=== PATIENT | male | born 1970 | race Asian ===

== ENCOUNTER → 2020-07-01 13:06 | Outpatient (BNVA) | payer OTHER, SELFPAY | PROVIDERS: PCP Internal Medicine; Referring Provider Internal Medicine; Visit Provider Nurse Practitioner | DX: R10.13 Epigastric pain (principal); Z86.010 Personal history of colon polyps | CPT/HCPCS: 99212 ==

== ENCOUNTER 2020-12-09 11:18 | Outpatient (REF) | payer OTHER, SELFPAY ==
[2020-12-09 12:09] LABS: MANUAL DIFF FLAG NO
[2020-12-09 12:17] LABS: Basophils Percent Auto 0.5 % (0-2); Eosinophils Absolute Auto 0.2 X10*3/uL (0.0-0.4); Hematocrit 43.3 % (42-52); Hemoglobin 14.7 g/dl (14.0-18.0); Imm Gran Abs Auto 0.02 X10*3/uL (0.00-0.03); Imm Gran Pct Auto 0.4 % (0.0-0.4); Lymphocytes Absolute Auto 1.8 X10*3/uL (1.2-4.9); Lymphocytes Percent Auto 31.6 % (20-40); Mean Corpuscular HGB Conc 33.9 g/dl (31.0-36.0); Mean Corpuscular Hemoglobin 30.6 pg (27.0-33.0); Mean Platelet Volume 8.9 fL (9.4-12.4); Monocytes Absolute Auto 0.4 X10*3/uL (0.1-1.2); Monocytes Percent Auto 6.9 % (2-11); Neutrophils Absolute Auto 3.3 X10*3/uL (2.0-8.3); Neutrophils Percent Auto 57.6 % (45-73); Platelet Count 207 X10*3/uL (160-400); Red Blood Count 4.81 X10*6/uL (4.60-5.80); Red Cell Distribution Width 11.8 % (11.0-16.0); White Blood Count 5.7 X10*3/uL (4.8-10.8)
[2020-12-09 12:28] LABS: Glucose Urine UA NEG (NEG); Leukocyte Esterase Urine NEG (NEG); Nitrite Urine NEG (NEG); PH 7.5 (5.0-8.0); Urine Blood NEG (NEG); Urine Ketones NEG (NEG); Urine Protein NEG (NEG-TRACE)
[2020-12-09 12:30] LABS: Appearance Urine CLEAR; Color Urine YELLOW
[2020-12-09 18:21] LABS: Prostate Specific Antigen Scr 0.73 ng/mL (<0.05-4.0); TSH reflex Free T4 1.02 uIU/mL (0.32-4.0)
[2020-12-09 18:27] LABS: Alanine Aminotransferase 35 U/L (0-40); Albumin Level 4.1 g/dL (3.5-5.0); Alkaline Phosphatase 79 U/L (39-117); Anion Gap 9 (12-20); Aspartate Amino Transferase 18 U/L (5-37); Bilirubin Total 0.4 mg/dL (0.0-1.0); Blood Urea Nitrogen 16 mg/dL (9-16); Calcium 8.6 mg/dL (8.4-10.2); Carbon Dioxide 31 mmol/L (22-29); Chloride 108 mmol/L (96-108); Cholesterol 212 mg/dL; Estimated Glomerular Filt Rate > 60; Glucose Fasting 96 mg/dL (60-99); HDL Cholesterol 36 mg/dL; LDL Cholesterol Calculated 149 mg/dl; Potassium 3.7 mmol/L (3.3-5.1); Sodium 144 mmol/L (135-145); Total Protein 6.8 g/dL (6.5-8.0); Triglycerides 139 mg/dL
[2020-12-10 04:39] LABS: SARS COV2 IgG Negative (Negative)
== END 2020-12-09 11:19 | disposition home or self-care (01) ==
LOC: HO.LAB 11:18
PROVIDERS: PCP Internal Medicine; Visit Provider Internal Medicine
DX: Z00.00 Encounter for general adult medical examination without abnormal findings (principal); I10 Essential (primary) hypertension; E78.00 Pure hypercholesterolemia, unspecified; T50.Z95A Adverse effect of other vaccines and biological substances, initial encounter; Z12.5 Encounter for screening for malignant neoplasm of prostate
CPT/HCPCS: 36415; 80053; 80061; 81003; 84153; 84443; 85025; 86769

== ENCOUNTER 2021-12-22 11:22 | Outpatient (REF) | payer OTHER, SELFPAY ==
[2021-12-22 11:42] LABS: MANUAL DIFF FLAG NO
[2021-12-22 12:03] LABS: Basophils Percent Auto 0.6 % (0-2); Eosinophils Absolute Auto 0.1 X10*3/uL (0.0-0.4); Eosinophils Percent Auto 2.4 % (0-4); Hematocrit 42.6 % (42.0-52.0); Imm Gran Abs Auto 0.02 X10*3/uL (0.00-0.03); Imm Gran Pct Auto 0.4 % (0.0-0.4); Lymphocytes Absolute Auto 1.7 X10*3/uL (1.2-4.9); Lymphocytes Percent Auto 34.3 % (20-40); Mean Corpuscular HGB Conc 35.2 g/dl (31.0-36.0); Mean Corpuscular Hemoglobin 31.3 pg (27.0-33.0); Mean Corpuscular Volume 88.9 fL (80.0-98.0); Mean Platelet Volume 9.1 fL (9.4-12.4); Monocytes Absolute Auto 0.3 X10*3/uL (0.1-1.2); Monocytes Percent Auto 6.8 % (2-11); Neutrophils Absolute Auto 2.8 x10*3/uL (2.0-8.3); Neutrophils Percent Auto 55.5 % (45-73); Platelet Count 203 X10*3/uL (160-400); Red Blood Count 4.79 X10*6/uL (4.60-5.80); Red Cell Distribution Width 11.9 % (11.0-16.0)
[2021-12-22 12:28] LABS: Alanine Aminotransferase 33 U/L (0-40); Alkaline Phosphatase 77 U/L (39-117); Anion Gap 10 (12-20); Aspartate Amino Transferase 19 U/L (5-37); Bilirubin Total 0.7 mg/dL (0.0-1.0); Blood Urea Nitrogen 17 mg/dL (9-16); Calcium 8.7 mg/dL (8.4-10.2); Carbon Dioxide 29 mmol/L (22-29); Chloride 106 mmol/L (96-108); Cholesterol 225 mg/dL; Estimated Glomerular Filt Rate > 60; Glucose Fasting 93 mg/dL (60-99); HDL Cholesterol 36 mg/dL; LDL Cholesterol Calculated 164 mg/dl; Potassium 3.7 mmol/L (3.3-5.1); Sodium 141 mmol/L (135-145); Total Protein 6.7 g/dL (6.5-8.0); Triglycerides 127 mg/dL
[2021-12-22 12:53] LABS: Prostate Specific Antigen Scr 0.62 ng/mL (<0.05-4.0); TSH reflex Free T4 1.39 uIU/mL (0.32-4.0); Vitamin D 25-OH Total 48.7 ng/mL (>30)
[2021-12-22 14:12] LABS: Appearance Urine CLOUDY; Color Urine YELLOW; Glucose Urine UA NEG (NEG); Leukocyte Esterase Urine NEG (NEG); Nitrite Urine NEG (NEG); Specific Gravity - Urine 1.015 (1.005-1.025); Urine Blood NEG (NEG); Urine Ketones NEG (NEG); Urine Protein NEG (NEG-TRACE)
== END 2021-12-22 11:23 | disposition home or self-care (01) ==
LOC: HO.LAB 11:22
PROVIDERS: PCP Internal Medicine; Visit Provider Internal Medicine
DX: Z00.00 Encounter for general adult medical examination without abnormal findings (principal); E55.9 Vitamin D deficiency, unspecified; E78.00 Pure hypercholesterolemia, unspecified; I10 Essential (primary) hypertension; Z12.5 Encounter for screening for malignant neoplasm of prostate
CPT/HCPCS: 36415; 80053; 80061; 81003; 82306; 84153; 84443; 85025

== ENCOUNTER → 2022-06-07 15:24 | Outpatient (BNVA) | payer OTHER, SELFPAY | PROVIDERS: PCP Internal Medicine; Visit Provider Nurse Practitioner | DX: Z01.818 Encounter for other preprocedural examination (principal); R10.13 Epigastric pain; Z86.010 Personal history of colon polyps | CPT/HCPCS: 99212 ==

== ENCOUNTER 2022-11-17 11:49 | Outpatient (REF) | payer OTHER, SELFPAY ==
[2022-11-17 12:10] LABS: MANUAL DIFF FLAG NO
[2022-11-17 13:27] LABS: Basophils Absolute Auto 0.1 X10*3/uL (0.0-0.2); Eosinophils Absolute Auto 0.1 X10*3/uL (0.0-0.4); Eosinophils Percent Auto 2.4 % (0-4); Hematocrit 42.7 % (42.0-52.0); Hemoglobin 15.1 g/dl (14.0-18.0); Imm Gran Abs Auto 0.02 X10*3/uL (0.00-0.03); Imm Gran Pct Auto 0.4 % (0.0-0.4); Lymphocytes Absolute Auto 1.8 X10*3/uL (1.2-4.9); Mean Corpuscular HGB Conc 35.4 g/dl (31.0-36.0); Mean Corpuscular Hemoglobin 31.2 pg (27.0-33.0); Mean Corpuscular Volume 88.2 fL (80.0-98.0); Mean Platelet Volume 9.3 fL (9.4-12.4); Monocytes Absolute Auto 0.3 X10*3/uL (0.1-1.2); Monocytes Percent Auto 6.5 % (2-11); Neutrophils Absolute Auto 2.8 x10*3/uL (2.0-8.3); Neutrophils Percent Auto 54.7 % (45-73); Platelet Count 216 X10*3/uL (160-400); Red Blood Count 4.84 X10*6/uL (4.60-5.80); White Blood Count 5.1 X10*3/uL (4.8-10.8)
[2022-11-17 13:40] LABS: Appearance Urine Clear; Color Urine Yellow; Glucose Urine UA Negative (Negative); Leukocyte Esterase Urine Negative (Negative); Nitrite Urine Negative (Negative); Specific Gravity - Urine 1.015 (1.005-1.025); Urine Blood Negative (Negative); Urine Ketones Negative (Negative); Urine Protein Negative (Neg-Trace)
[2022-11-17 14:22] LABS: Alanine Aminotransferase 27 U/L (0-40); Alkaline Phosphatase 90 U/L (39-117); Anion Gap 11 (12-20); Aspartate Amino Transferase 17 U/L (5-37); Bilirubin Total 0.9 mg/dL (0.0-1.0); Blood Urea Nitrogen 14 mg/dL (9-16); Calcium 8.3 mg/dL (8.4-10.2); Carbon Dioxide 28 mmol/L (22-29); Chloride 107 mmol/L (96-108); Cholesterol 244 mg/dL; Estimated Glomerular Filt Rate > 60; Glucose Fasting 88 mg/dL (60-99); HDL Cholesterol 35 mg/dL; LDL Cholesterol Calculated 184 mg/dl; Potassium 3.5 mmol/L (3.3-5.1); Sodium 142 mmol/L (135-145); Total Protein 6.5 g/dL (6.5-8.0); Triglycerides 127 mg/dL
[2022-11-17 14:27] LABS: Prostate Specific Antigen Scr 0.74 ng/mL (<0.05-4.0); TSH reflex Free T4 1.34 uIU/mL (0.32-4.0); Vitamin D 25-OH Total 27.6 ng/mL (>30)
== END 2022-11-17 11:50 | disposition home or self-care (01) ==
LOC: HO.LAB 11:49
PROVIDERS: PCP Internal Medicine; Visit Provider Internal Medicine
DX: Z00.00 Encounter for general adult medical examination without abnormal findings (principal); Z12.5 Encounter for screening for malignant neoplasm of prostate; R30.0 Dysuria; E55.9 Vitamin D deficiency, unspecified; E78.00 Pure hypercholesterolemia, unspecified
CPT/HCPCS: 36415; 80053; 80061; 81003; 82306; 84153; 84443; 85025

== ENCOUNTER → 2023-02-16 09:45 | Outpatient (BNVA) | payer OTHER, SELFPAY | PROVIDERS: PCP Internal Medicine; Visit Provider Nurse Practitioner ==

== ENCOUNTER 2023-03-02 10:47 | Day surgery (SDC) | payer OTHER, SELFPAY ==
[2023-02-28 10:21] VITALS: BMI 27.9
--- NOTE | 2023-02-28 15:15 | P.CONAN_ITS ---
Documented by User: Leticia Diego NP 02/28/23 15:15 HPI - Anesthesia Eval Consult details Narrative: 52yo M for Colonoscopy PMFSH Active Problems Active Problems: All Active Problems (Updated 02/10/23 @ 10:55 by Zaheer Cummings MD) Facial skin lesion (Acute) Lipoma of back (Acute) Pre-op examination (Acute) Colon cancer screening (Acute) Allergic rhinitis (Acute) Overweight (BMI 25.0-29.9) (Acute) Elevated blood pressure reading (Acute) Pure hypercholesterolemia (Acute) Annual physical exam (Acute) Tubular adenoma of colon (Acute) Dyspepsia (Acute) Past Medical History Medical History (Updated 03/02/23 @ 11:06 by Batsheva Rey RN) Allergic rhinitis GERD (gastroesophageal reflux disease) Overweight (BMI 25.0-29.9) Pure hypercholesterolemia Family History Family History Father Diabetes Mother High blood pressure High cholesterol Brother No problems noted. Sister No problems noted. Surgical History Surgical History Hx of colonoscopy Status post excision of lipoma (~09/26/18) Social History Social History Housing: House Alcohol intake: current Alcohol intake frequency: holidays/special occasions only Alcohol type: beer, wine, hard liquor and other Patient Tobacco Use Status: Never used Tobacco e-Cigarette/Vaping Use: Never Used Second Hand Smoke Exposure: Yes Use of substances other than those prescribed or required for medical reasons: No Are you DNR?: No Advance Directives: No Advance Directives Information Provided: Yes service: No Current occupational status: employed Cognitive needs: No Hearing needs: No Vision needs: Yes (reading glasses) Meds Allergies Allergy/AdvReac Type Severity Reaction Status Date / Time No Known Allergies Allergy Verified 03/02/23 11:07 Home Medications Medication Instructions Recorded Confirmed Last Taken Type aspirin 81 mg capsule 81 mg PO DAILY 02/16/23 03/02/23 02/27/23 History fluticasone propionate 50 1 spray intranasal DAILY 02/28/23 03/02/23 Unknown History mcg/actuation nasal spray,suspension Exam Exam Date and Time: February 28, 2023 1515 Height,Weight and Vital Signs: Height 5 ft 5.5 in Weight 77.111 kg Assessment and Plan Assessment Anesthesia Assessment: Chart Reviewed Documented by User: Reilly Godinez MD 03/02/23 11:21 [facility] Past Medical History Medical History (Updated 03/02/23 @ 11:06 by Batsheva Rey, MANISHA) Allergic rhinitis GERD (gastroesophageal reflux disease) Overweight (BMI 25.0-29.9) Pure hypercholesterolemia Family History Family History Father Diabetes Mother High blood pressure High cholesterol Brother No problems noted. Sister No problems noted. Family history of problems with anesthesia: No Surgical History Surgical History Hx of colonoscopy Status post excision of lipoma (~09/26/18) History of Problems with Anesthesia: No Social History Social History Housing: House Alcohol intake: current Alcohol intake frequency: holidays/special occasions only Alcohol type: beer, wine, hard liquor and other Patient Tobacco Use Status: Never used Tobacco e-Cigarette/Vaping Use: Never Used Second Hand Smoke Exposure: Yes Use of substances other than those prescribed or required for medical reasons: No Are you DNR?: No Advance Directives: No Advance Directives Information Provided: Yes service: No Current occupational status: employed Cognitive needs: No Hearing needs: No Vision needs: Yes (reading glasses) Meds Allergies Allergy/AdvReac Type Severity Reaction Status Date / Time No Known Allergies Allergy Verified 03/02/23 11:07 Home Medications Medication Instructions Recorded Confirmed Last Taken Type aspirin 81 mg capsule 81 mg PO DAILY 02/16/23 03/02/23 02/27/23 History fluticasone propionate 50 1 spray intranasal DAILY 02/28/23 03/02/23 Unknown History mcg/actuation nasal spray,suspension Exam Airway Mallampati Class: II TM Dist: >3cm Neck ROM: Full Loose/Missing/Broken Teeth: Yes and Upper (L rear) Heart: ok Lungs: ok Assessment and Plan Assessment Anesthesia Assessment: Anesthesia Plan Discussed Final Anesthetic Review Family History of Problems with Anesthesia: No History of Problems with Anesthesia: No NPO: Yes ASA Class: II Final Preanesthetic Review: No Changes in Pt Med Stat, Meds/Allgs Chart Reviewed, Consent Obtained/Reviewed and Anes Risks/Benef Reviewed Patient Risk: Low Procedure Risk: Low Anesthetic Plan Anesthetic Plan: GA and Agree w/ Assess. and Plan Disposition: Standard PACU
--- NOTE | 2023-03-02 11:14 | P.HPSUR_ITS ---
Pre-Procedural Eval Section A Date of Service: 03/02/23 Section B Chief Complaint: Benign neoplasm of colon, unspecified Relevant Family History (Specify if Yes): No Relevant Social History: None Present Medications: see Short Stay Collaborative assessment Medical History: Significant History (Allergic rhinitis GERD (gastroesophageal reflux disease) Overweight (BMI 25.0-29.9) Pure hypercholesterolemia) History of Previous Operations: Relevant previous surgery/procedure and date(s) (Hx of colonoscopy Status post excision of lipoma (~09/26/18)) Allergies: Allergies Allergy/AdvReac Type Severity Reaction Status Date / Time No Known Allergies Allergy Verified 03/02/23 11:07 Review of Systems Sugical H&P ROS: Negative: Constitution, Cardiovascular, Respiratory, Neurological, Psychiatric, Hem-Onc, Allergic/Immunologic, Gastrointestinal, Genitourinary, Musculoskeletal, Integumentary, Endocrine and Eyes/Ears/Nose/Throat Exam Surgical H&P Exam: Normal: HEENT, Normal: Heart, Normal: Lungs, Normal: Extremi ties, Normal: Abdomen, Normal: Skin and Normal: Neurological Plan Diagnosis/Plan: Unchanged I have reviewed the history and physical and performed a pertinent physical examination on my patient. No changes have occurred unless specified. Time Spent With Patient Time: Total time managing care of this patient today ____ minutes.
--- NOTE | 2023-03-02 11:21 | W.PM.OPN ---
Operative Note Operative Note Date of Service: 03/02/23 Narrative: Operative Information Procedure Description: Colonoscopy Indication: hx of polyps Anesthesia: MAC COLONOSCOPY Instrument: Olympus variable stiffness pediatric scope 190L Colonoscopy Monitoring: Vital signs and clinical assessment, continuous EKG monitoring, Pulse oximetry, Carbon Dioxide monitoring and blood pressure monitoring were done throughout the procedure. Colon withdrawal time was 7 minutes. Procedure: The patient was placed in the left lateral decubitis position and pre-procedure medications were administered. After a digital rectal examination of the ano-rectum, the video colonoscope was inserted into the rectum and advanced through the colon to the cecum/TI. The colonoscope was slowly withdrawn in a retrograde panoramic fashion and the colon mucosa was carefully examined including a retroflexed view of the rectum. Findings and interventions are described below. Procedure Difficulty: moderate Findings: Terminal Ileum-not intubated Cecum:normal Ascending Colon: normal Transverse Colon -normal Descending Colon:normal Sigmoid Colon: normal Rectum: Retroflexion with small internal hemorrhoids, grade I Anorectum - normal Colon preparation: Midnight Bowel Preparation Scale Right colon; 2 Transverse colon: 1-2 Left colon; 1-2 (0 = Unprepared colon segment with mucosa not seen due to solid stool that cannot be cleared. 1 = Portion of mucosa of the colon segment seen, but other areas of the colon segment not well seen due to staining, residual stool and/or opaque liquid. 2 = Minor amount of residual staining, small fragments of stool and/or opaque liquid, but mucosa of colon segment seen well. 3 = Entire mucosa of colon segment seen well with no residual staining, small fragments of stool or opaque liquid) Impression and Post Procedure Diagnosis: internal hemorrhoids Plan: High fiber diet leaflet Avoid straining at stool, epsom salts and sitz bath, anusol supps or cream Repeat Colonoscopy in 2-3 years due to fair prep in some areas or earlier if clinically indicated Above findings were reviewed with the patient and relevant handouts were provided if indicated.
[2023-03-02 11:22] VITALS: BP 160/110; PULSE 74; RESP 15; TEMP 36.5; O2SAT 97
[2023-03-02] MEDS: Lactated Ringers 1,000 ML 100 ML IVCONT (11:24)
[2023-03-02 11:48] VITALS: BP 130/88; PULSE 73; RESP 18; TEMP 36.3; O2SAT 94
[2023-03-02 12:03] VITALS: BP 123/88; PULSE 79; RESP 18; O2SAT 98
== END 2023-03-02 12:53 | disposition home or self-care (01) ==
PROVIDERS: PCP Internal Medicine; Visit Provider Internal Medicine Gastroenterology
PROC: 0DJD8ZZ Inspection of Lower Intestinal Tract, Via Natural or Artificial Opening Endoscopic (ICD-10-PCS; CPT 45378; principal; 2023-03-02 12:20)
DX: Z12.11 Encounter for screening for malignant neoplasm of colon (principal); K64.0 First degree hemorrhoids
CPT/HCPCS: 45378

== ENCOUNTER 2023-03-15 13:54 | Outpatient (AMB) | payer OTHER, SELFPAY ==
[2023-03-15 13:59] VITALS: BP 154/104; PULSE 75; BMI 27.8
--- NOTE | 2023-03-15 13:59 | A.OFFVIS_ITS ---
Intake Vital Signs 03/15/23 13:59 Height 5 ft 5.5 in Weight 169 lb 12.095 oz BMI 27.8 BP 154/104 H Blood Pressure Location Lt brachial Position Sitting Pulse 75 Intake Visit Reasons: s/p evaon-Clyde Intake Note: Rey presents in office as a est.patient for a post-op for colo PT CC: pt reports having no concerns pt denies any other GI Issues Shroud Line Tier Required: No Accompanied by: Self / Same As Patient Allergies No Known Allergies Allergy (Verified 03/15/23 13:59) HPI s/p coolon-Tang HPI Details Assessment & Plan (1) Pre-op examination: ?Code(s): Z01.818 - Encounter for other preprocedural examination ?Plan: The patient is due for repeat colonoscopy due to very large polyp being removed in 2018 He is doing well, he does not take anything for his dyspepsia, he just avoids triggers and eats more slowly.? He worked in the [employer] business all his life any found that this promoted eating too quickly that he has had to modify as he ages. He is agreeable to getting the colonoscopy ordered. He would be due 12/2022. There are no prior problems with anesthesia or sedation.? There are no infectious disease problems. He had a very large TA removed in 12/2018. ROV after colonoscopy (2) Dyspepsia: ?Code(s): R10.13 - Epigastric pain (3) Tubular adenoma of colon: ?Comment: 2018 scope, repeat 2022 ?Code(s): D12.6 - Benign neoplasm of colon, unspecified ? ? ? Medications: New peg 3350-electroly sherry 236-22.74-6.74 -5.86 gram (Golyt miguel) ?? until feca l effluent is rian r; do not exceed a total volume of 2 ,000 mL 240 mL? PO Q10M 1 day 4,000 mL 0RF Z12.11 - Encounter for screening for malignant neoplas m of colon COLONOSCOPY 03/02/23 Findings: Terminal Ileum-not intubated Cecum:normal Ascending Colon: normal Transverse Colon -normal Descending Colon:normal Sigmoid Colon:? normal Rectum: Retroflexion with small internal hemorrhoids, grade I Anorectum - normal Impression and Post Procedure Diagnosis: internal hemorrhoids Plan: High fiber diet leaflet Avoid straining at stool, epsom salts and sitz bath, anusol supps or cream Repeat Colonoscopy in 2-3 years due to fair prep in some areas or earlier if clinically indicated TODAY'S VISIT The procedure should be repeated in 3 years due to fair prep and is history of a large polyp. The procedure was well tolerated. The results were explained and the patient is agreeable to the follow-up interval as stated. The bowel pattern has returned to normal. Education was provided to tell any 1st degree relatives about their findings to be sure that they are screened by age 45. Educated that they will be put on a recall list when it is time for their repeat scope but s hould they move out of state or away from the hospital they will need to remember along with their primary to repeat the procedure in a timely fashion to avoid any adverse complications. [facility] Medical History Allergic rhinitis GERD (gastroesophageal reflux disease) Overweight (BMI 25.0-29.9) Pure hypercholesterolemia Surgical History Hx of colonoscopy Status post excision of lipoma (~09/26/18) Family History Father Diabetes Mother High blood pressure High cholesterol Brother No problems noted. Sister No problems noted. Social History Housing: House Alcohol intake: current Alcohol intake frequency: holidays/special occasions only Alcohol type: beer, wine, hard liquor and other Patient Tobacco Use Status: Never used Tobacco e-Cigarette/Vaping Use: Never Used Second Hand Smoke Exposure: Yes service: No Current occupational status: employed Cognitive needs: No Hearing needs: No Vision needs: Yes (reading glasses) Review of Systems Const Denies fatigue, Denies fever(s), Denies night sweats, Denies poor appetite and Denies weight loss ENT Reports Normal hearing present, Denies dental pain, Denies dysphagia, Denies hearing loss, Denies mouth pain, Denies odynophagia, Denies throat swelling, Denies tongue swelling and Reports other (Dentition adequate) Card Reports no additional complaints Resp Reports no additional complaints GI Denies abdominal pain, Denies melena, Denies bloating, Denies hematochezia, Denies constipation, Denies GI cramping, Denies dysphagia, Denies excessive flatus, Denies early satiety, Reports heartburn, Denies diarrhea, Denies nausea, Denies odynophagia, Denies vomiting and Denies hematemesis Skin/Breast Denies pruritus, Denies lesions, Denies rash and Denies jaundice Neuro Reports Normal hearing present and Denies Abnormal speech present Endo Denies fatigue Aller/Immun Denies throat swelling and Denies tongue swelling Physical Exam Vital Signs: Last Vital Signs Pulse 75 03/15/23 13:59 BP 154/104 H 03/15/23 13:59 BMI result Body Mass Index 27.8 Const General: cooperative, no acute distress, well developed and well groomed Nutritional Appearance: well nourished Orientation/consciousness: oriented to person, oriented to place and oriented to time Limitations: No language barrier HEENT Head: Yes normocephalic and Yes atraumatic Eyes General: appearance normal, both eyes and all related structures Pupils: Equal, round and reactive pupils present Neck Neck: Yes normal visual inspection and Yes no lymphadenopathy Thyroid: Thyroid normal Resp Effort & Inspection: normal respiratory effort and able to speak in complete sentences Auscultation: clear to auscultation bilaterally Cardio Rate: regular rate Rhythm: regular rhythm Heart sounds: Normal, physiologic split S2 sound present Peripheral pulses: radial pulses present and posterior tibial pulses present GI Inspection: No distended and No Abdominal panniculus present Palpation (GI): Soft to palpation, nontender, no guarding, not rigid and No hepatosplenomegaly present Percussion: Yes normal to percussion Auscultation: normal bowel sounds Rectal Exam - Male: Yes deferred Skin General skin exam: no rashes or lesions noted, turgor normal, skin not dry, no jaundice, No spider nevi and no striae Rashes: no rashes Nails: normal Neuro General: oriented to person, oriented to place and oriented to time Cranial nerves: Yes Equal, round and reactive pupils present and Yes Normal hearing present Speech: No Abnormal speech present Extrem General: Yes normal to inspection, No clubbing, No cyanosis and No edema Psych Appearance: grossly normal and well kempt Mental Status: mental status grossly normal Speech and movement: Normal speech and movement present Affect: normal affect Attitude: cooperative Thought process: Normal thought process present and not confabulating Thought content: Normal thought content present Insight: Fair insight present (Psych) Judgement: Fair judgement present (Psych) Results Reviewed Results Reviewed: COLONOSCOPY 03/02/23 Findings: Terminal Ileum-not intubated Cecum:normal Ascending Colon: normal Transverse Colon -normal Descending Colon:normal Sigmoid Colon:? normal Rectum: Retroflexion with small internal hemorrhoids, grade I Anorectum - normal Impression and Post Procedure Diagnosis: internal hemorrhoids Plan: High fiber diet leaflet Avoid straining at stool, epsom salts and sitz bath, anusol supps or cream Repeat Colonoscopy in 2-3 years due to fair prep in some areas or earlier if clinically indicated Assessment & Plan Assessment & Plan (1) Tubular adenoma of colon: Comment: 2019 scope, repeat 2022= negative scope repeat in 3 years due to fair prep Code(s): D12.6 - Benign neoplasm of colon, unspecified Plan: The procedure should be repeated in 3 years due to fair prep and is history of a large polyp. The procedure was well tolerated. The results were explained and the patient is agreeable to the follow-up interval as stated. The bowel pattern has returned to normal. Education was provided to tell any 1st degree relatives about their findings to be sure that they are screened by age 45. Educated that they will be put on a recall list when it is time for their repeat scope but should they move out of state or away from the hospital they will need to remember along with their primary to repeat the procedure in a timely fashion to avoid any adverse complications. Coding Level of Care Code Est Pt Level 3 (79028) Diagnoses Tubular adenoma of colon D12.6
== END 2023-03-15 15:27 | disposition home or self-care (01) ==
PROVIDERS: PCP Internal Medicine; Visit Provider Nurse Practitioner
DX: D12.6 Benign neoplasm of colon, unspecified (principal)
CPT/HCPCS: 99213

== ENCOUNTER → 2023-03-15 13:54 | Outpatient (BNVA) | payer OTHER, SELFPAY | PROVIDERS: PCP Internal Medicine; Visit Provider Nurse Practitioner | DX: D12.6 Benign neoplasm of colon, unspecified (principal) | CPT/HCPCS: 99212 ==

== ENCOUNTER 2023-06-13 13:55 | Outpatient (AMB) | payer OTHER, SELFPAY ==
[2023-06-13 13:57] VITALS: BP 134/96; PULSE 74; O2SAT 98; BMI 27.4
--- NOTE | 2023-06-13 13:57 | A.OFFPC_ITS ---
Vital Signs 06/13/23 13:57 Height 5 ft 5.5 in Weight 167 lb 6 oz BMI 27.4 BP 134/96 H Blood Pressure Location Lt brachial Position Sitting Pulse 74 Pulse Source Pulse Oximeter Pulse Oximetry (%) 98 Oxygen Delivery Method Room Air Intake Visit Reasons: hyperlipidemia Production Analyst Required: No Accompanied by: Self / Same As Patient Allergies No Known Allergies Allergy (Verified 06/13/23 14:28) Medication List - Last Reconciled 06/13/23 by Zaheer Cummings MD aspirin 81 mg PO DAILY fluticasone propionate 50 mcg/actuation 1 spray intranasal DAILY Tobacco use date assessed: 06/13/23 Dental Screening Dental Screen Date: 06/13/23 Did you have a dental visit in the last 12 months?: No Did you have a dental problem in the last 6 months where you did not have access to dental care?: No Was dental information given to patient?: No HPI hyperlipidemia HPI Details Patient comes in today for his follow up visit States that he feels okay He denies any headaches or dizziness Denies any chest pains, no SOB No nausea/vomiting, no abdominal pain No change in bowel habits noted He was not able to get his follow up labs done yet - just got back from [place] a couple of days ago States that he took his parents back to [place] for about 28 days - his father is getting more and more forgetful and he needed to go back and get all of his bank accounts and properties transferred over before he completely loses his memory [facility] Medical History GERD (gastroesophageal reflux disease) Allergic rhinitis Overweight (BMI 25.0-29.9) Pure hypercholesterolemia Surgical History Status post excision of lipoma (~09/26/18) Hx of colonoscopy Family History Father Diabetes Mother High blood pressure High cholesterol Brother No problems noted. Sister No problems noted. Social History Housing: House Alcohol intake: current Alcohol intake frequency: holidays/special occasions only Alcohol type: beer, wine, hard liquor and other Patient Tobacco Use Status: Never used Tobacco e-Cigarette/Vaping Use: Never Used Second Hand Smoke Exposure: Yes service: No Current occupational status: employed Cognitive needs: No Hearing needs: No Vision needs: Yes (reading glasses) Questionnaire PHQ-9 Over the last 2 weeks, how often have you been bothered by any of the following problems? 1. Little interest or pleasure in doing things: not at all 2. Feeling down, depressed, or hopeless: not at all 3. Trouble falling or staying asleep, or sleeping too much: not at all 4. Feeling tired or having little energy: not at all 5. Poor appetite or overeating: not at all 6. Feeling bad about yourself - or that you are a failure or have let yourself or your family down: not at all 7. Trouble concentrating on things, such as reading the newspaper or watching television: not at all 8. Moving or speaking so slowly that other people could have noticed. Or the opposite - being so fidgety or restless that you have been moving around a lot more than usual: not at all 9. Thoughts that you would be better off or of hurting yourself in some way: not at all Total score: 0 Depression Screening Interpretation: Negative Depression Screening Done: Yes 24959 - PHQ-9 Billing: Yes Source: Developed by Drs. Med Moise, Sherin Krause, Monty Campos and colleagues, with an educational joslyn from [employer]. Thrive Questionnaire Date Thrive assessed: 06/13/23 I am a: Patient What is your living situation today?: I have a steady place to live Within the past 12 months, did the food you bought not last and you didn't have the money to get more?: Never true Within the past 12 months, did you worry whether your food would run out before you got money to buy more?: Never true Do you have trouble paying for medicines?: No Do you have trouble getting transportation to medical appointments?: No Do you have trouble paying your heating and electricity bill?: No Do you have trouble taking care of your child, family member or friend?: No Do you have trouble with day-to-day activities such as bathing, preparing meals, shopping, managing finances, etc.?: No Are you currently unemployed and looking for a job?: No Are you interested in more education?: No Please select the resources that you would like help with: None Currently or been in a relationship where the following occur: no concerns reported AUDIT C Alcohol Use Questionnaire (AUDIT-C) 1. How often do you have a drink containing alcohol?: Never 3. How often do you have six or more drinks on one occasion?: Never Total Score: 0 Score Reviewed/Action Taken: Yes KARUNA-7 AMB Questionnaire KARUNA-7 Date KARUNA - 7 assessed: 06/13/23 Feeling nervous, anxious, or on edge: 0 = Not at all Not being able to stop or control worryin = Not at all Worrying too much about different things: 0 = Not at all Trouble relaxin = Not at all Being so restless that it is hard to sit still: 0 = Not at all Becoming easily annoyed or irritable: 0 = Not at all Feeling afraid as if something awful might happen: 0 = Not at all Total KARUNA-7 score (0-4 normal; 5-9 mild; 10-14 moderate; 15-21 severe): 0 Source: Developed by Drs. Med Moise, Sherin Krause, Monty Campos and colleagues, with an educational joslyn from [employer]. Review of Systems Const Denies fatigue, Denies fever(s) and Denies headache(s) ENT Denies dysphagia, Denies dizziness, Denies otalgia, Denies headache(s), Denies odynophagia and Denies sore throat Card Denies chest pain, Denies palpitations and Denies dyspnea Resp Denies cough and Denies dyspnea GI Denies abdominal pain, Denies constipation, Denies dysphagia, Denies heartburn, Denies diarrhea and Denies odynophagia Denies dysuria, Denies nocturia and Denies urinary frequency Neuro Denies dizziness and Denies headache(s) Endo Denies fatigue and Denies palpitations Physical exam (Primary Care) Vital Signs: Last Vital Signs Pulse 74 06/13/23 13:57 BP 134/96 H 06/13/23 13:57 Pulse Ox 98 06/13/23 13:57 Oxygen Delivery Method Room Air 06/13/23 13:57 BMI result Body Mass Index 27.4 Tobacco/Smoking Status: Tobacco use Status Tobacco use date assessed 06/13/23 06/13/23 14:00 Patient Tobacco Use Status Never used Tobacco 06/13/23 14:00 e-Cigarette/Vaping Use Never Used 06/13/23 14:00 PHQ-9: PHQ-9 Score PHQ-9: Total score 0 06/13/23 14:40 Depression Screening Interpretation: Negative Thrive Assessment: Date of Thrive Assessment Date Thrive assessed 06/13/23 06/13/23 14:00 Currently or been in a relationship where the following occur: no concerns reported Const General: no acute distress and alert Neck Neck: Yes no lymphadenopathy and Yes supple Resp Auscultation: clear to auscultation bilaterally, no rales and no wheezes Cardio Rate: regular rate Rhythm: regular rhythm Heart sounds: no murmurs GI Palpation (GI): Soft to palpation and nontender Auscultation: normal bowel sounds Extrem General: Yes no clubbing, cyanosis or edema Assessment and Plan Assessment & Plan (1) Pure hypercholesterolemia: Comment: no meds--borderline Code(s): E78.00 - Pure hypercholesterolemia, unspecified Plan: Patient states that he will try to get his follow up labs done CATHY Is reminded that his LDL cholesterol and total cholesterol levels remain very high when they were last checked - they have gone up higher again from last year and have been steadily increasing over the past few years Reinforced low cholesterol diet Advised again that he may need to consider starting back on cholesterol-lowering medications if his numbers continue to go up Patient recalls taking something for his cholesterol in the past and prefers not to start back if he can get his numbers down with diet alone Will have him recheck his fasting lipids and labs again in 4 months for follow up (2) Elevated blood pressure reading: Code(s): R03.0 - Elevated blood-pressure reading, without diagnosis of hypertension Plan: Reinforced low sodium diet - his BP is higher than usual today Patient is reminded to monitor his blood pressure regularly (3) Allergic rhinitis: Code(s): J30.9 - Allergic rhinitis, unspecified Qualifiers: Allergic rhinitis seasonality: unspecified Allergic rhinitis trigger: unspecified Qualified Code(s): J30.9 - Allergic rhinitis, unspecified Plan: Continue Fluticasone 50 mcg nasal spray QD PRN (4) Overweight (BMI 25.0-29.9): Code(s): E66.3 - Overweight Plan: Reinforced diet/exercise as tolerated/lose weight Plan Follow up in 4 months Orders: Orders Lipid Panel 4 Months E78.00 - Pure hypercholesterolemia, unspecified Comprehensive Independence. Panel Fast 4 Months E78.00 - Pure hypercholesterolemia, unspecified Coding Level of Care Code Est Pt Level 3 (77271) Diagnoses Pure hypercholesterolemia E78.00 Elevated blood pressure reading R03.0 Allergic rhinitis, unspecified seasonality, unspecified trigger J30.9 Allergic rhinitis seasonality: unspecified Allergic rhinitis trigger: unspecified Overweight (BMI 25.0-29.9) E66.3
== END 2023-06-13 14:37 | disposition home or self-care (01) ==
PROVIDERS: PCP Internal Medicine; Visit Provider Internal Medicine
DX: E78.00 Pure hypercholesterolemia, unspecified (principal); R03.0 Elevated blood-pressure reading, without diagnosis of hypertension; J30.9 Allergic rhinitis, unspecified; E66.3 Overweight
CPT/HCPCS: 99213

== ENCOUNTER 2023-10-02 11:42 | Outpatient (REF) | payer OTHER, SELFPAY ==
[2023-10-02 12:54] LABS: Alanine Aminotransferase 27 U/L (0-40); Alkaline Phosphatase 83 U/L (39-117); Anion Gap 12 (12-20); Aspartate Amino Transferase 19 U/L (5-37); Bilirubin Total 0.5 mg/dL (0.0-1.0); Blood Urea Nitrogen 15 mg/dL (9-16); Calcium 8.7 mg/dL (8.4-10.2); Carbon Dioxide 27 mmol/L (22-29); Chloride 107 mmol/L (96-108); Cholesterol 226 mg/dL (<200); Estimated Glomerular Filt Rate > 60; Glucose Fasting 93 mg/dL (60-99); HDL Cholesterol 34 mg/dL (>40); LDL Cholesterol Calculated 166 mg/dL (<100); Potassium 3.2 mmol/L (3.3-5.1); Sodium 143 mmol/L (135-145); Triglycerides 134 mg/dL (<150)
== END 2023-10-02 11:43 | disposition home or self-care (01) ==
LOC: HO.LAB 11:42
PROVIDERS: PCP Internal Medicine; Visit Provider Internal Medicine
DX: E78.00 Pure hypercholesterolemia, unspecified (principal)
CPT/HCPCS: 36415; 80053; 80061

== ENCOUNTER 2023-11-10 11:01 | Outpatient (AMB) | payer OTHER, SELFPAY ==
--- NOTE | 2023-11-10 11:06 | A.OFFPC_ITS ---
Vital Signs 11/10/23 11:09 Height 5 ft 5.5 in Weight 169 lb 2 oz BMI 27.7 BP 120/66 Blood Pressure Location Lt brachial Position Sitting Pulse 86 Pulse Source Pulse Oximeter Pulse Oximetry (%) 96 Oxygen Delivery Method Room Air Intake Visit Reasons: 4 month f/u Intake Note: Patient is here to follow up on Hypercholesterolemia. Corporate Strategy Intern Required: No Spring Encaser: Not Required per policy Accompanied by: Self / Same As Patient Allergies No Known Allergies Allergy (Verified 11/10/23 11:24) Medication List - Last Reconciled 11/10/23 by Zaheer Cummings MD aspirin 81 mg PO DAILY fluticasone propionate 50 mcg/actuation 1 spray intranasal DAILY Tobacco use date assessed: 11/10/23 Dental Screening Dental Screen Date: 11/10/23 Did you have a dental visit in the last 12 months?: No Did you have a dental problem in the last 6 months where you did not have access to dental care?: No Was dental information given to patient?: No HPI 4 month f/u HPI Details Patient comes in today for his follow up visit States that he feels okay He denies any headaches or dizziness Denies any chest pains, no SOB No nausea/vomiting, no abdominal pain No change in bowel habits noted Had his follow up labs done a few weeks ago - to discuss his results [facility] Medical History GERD (gastroesophageal reflux disease) Allergic rhinitis Overweight (BMI 25.0-29.9) Pure hypercholesterolemia Surgical History (Updated 11/10/23 @ 11:27 by Zaheer Cummings MD) Status post excision of lipoma (~09/26/18) Hx of colonoscopy Family History Father Diabetes Mother High blood pressure High cholesterol Brother No problems noted. Sister No problems noted. Social History Housing: House Alcohol intake: current Alcohol intake frequency: holidays/special occasions only Alcohol type: beer, wine, hard liquor and other Patient Tobacco Use Status: Never used Tobacco e-Cigarette/Vaping Use: Never Used Second Hand Smoke Exposure: Yes service: No Current occupational status: employed Cognitive needs: No Hearing needs: No Vision needs: Yes (reading glasses) Questionnaire PHQ-9 Over the last 2 weeks, how often have you been bothered by any of the following problems? 1. Little interest or pleasure in doing things: not at all 2. Feeling down, depressed, or hopeless: not at all 3. Trouble falling or staying asleep, or sleeping too much: not at all 4. Feeling tired or having little energy: not at all 5. Poor appetite or overeating: not at all 6. Feeling bad about yourself - or that you are a failure or have let yourself or your family down: not at all 7. Trouble concentrating on things, such as reading the newspaper or watching television: not at all 8. Moving or speaking so slowly that other people could have noticed. Or the opposite - being so fidgety or restless that you have been moving around a lot more than usual: not at all 9. Thoughts that you would be better off or of hurting yourself in some way: not at all Total score: 0 Depression Screening Interpretation: Negative Depression Screening Done: Yes 14305 - PHQ-9 Billing: Yes Source: Developed by Drs. Med Moise, Sherin Krause, Monty Campos and colleagues, with an educational joslyn from [employer]. Thrive Questionnaire Date Thrive assessed: 11/10/23 I am a: Patient What is your living situation today?: I have a steady place to live Within the past 12 months, did the food you bought not last and you didn't have the money to get more?: Never true Within the past 12 months, did you worry whether your food would run out before you got money to buy more?: Never true Do you have trouble paying for medicines?: No Do you have trouble getting transportation to medical appointments?: No Do you have trouble paying your heating and electricity bill?: No Do you have trouble taking care of your child, family member or friend?: No Do you have trouble with day-to-day activities such as bathing, preparing meals, shopping, managing finances, etc.?: No Are you currently unemployed and looking for a job?: No Are you interested in more education?: No Currently or been in a relationship where the following occur: no concerns reported THRIVE Score: 0 AUDIT C Alcohol Use Questionnaire (AUDIT-C) 1. How often do you have a drink containing alcohol?: Never Total Score: 0 Score Reviewed/Action Taken: Yes KARUNA-7 AMB Questionnaire KARUNA-7 Date KARUNA - 7 assessed: 11/10/23 Feeling nervous, anxious, or on edge: 0 = Not at all Not being able to stop or control worryin = Not at all Worrying too much about different things: 0 = Not at all Trouble relaxin = Not at all Being so restless that it is hard to sit still: 0 = Not at all Becoming easily annoyed or irritable: 0 = Not at all Feeling afraid as if something awful might happen: 0 = Not at all Total KARUNA-7 score (0-4 normal; 5-9 mild; 10-14 moderate; 15-21 severe): 0 Source: Developed by Drs. Med Moise, Sherin Krause, Monty Campos and colleagues, with an educational joslyn from [employer]. Review of Systems Const Denies chills, Denies fatigue, Denies fever(s) and Denies headache(s) ENT Denies dysphagia, Denies dizziness, Denies otalgia, Denies headache(s), Denies neck pain, Denies odynophagia and Denies sore throat Card Denies chest pain, Denies palpitations and Denies dyspnea Resp Denies cough and Denies dyspnea GI Denies abdominal pain, Denies constipation, Denies dysphagia, Denies heartburn, Denies diarrhea, Denies nausea, Denies odynophagia and Denies vomiting Denies dysuria, Denies nocturia and Denies urinary frequency Musc Denies back pain and Denies neck pain Skin/Breast Denies rash Neuro Denies dizziness and Denies headache(s) Endo Denies fatigue and Denies palpitations Physical exam (Primary Care) Vital Signs: Last Vital Signs Pulse 86 11/10/23 11:09 BP 120/66 11/10/23 11:09 Pulse Ox 96 11/10/23 11:09 Oxygen Delivery Method Room Air 11/10/23 11:09 BMI result Body Mass Index 27.7 Tobacco/Smoking Status: Tobacco use Status Tobacco use date assessed 11/10/23 11/10/23 11:14 Patient Tobacco Use Status Never used Tobacco 11/10/23 11:14 e-Cigarette/Vaping Use Never Used 11/10/23 11:14 PHQ-9: PHQ-9 Score PHQ-9: Total score 0 11/10/23 11:14 Depression Screening Interpretation: Negative Thrive Assessment: Date of Thrive Assessment Date Thrive assessed 11/10/23 11/10/23 11:14 Currently or been in a relationship where the following occur: no concerns reported Const General: no acute distress and alert HENMT Ears: TM's normal bilaterally and EAC's normal Throat: Yes posterior oropharynx normal and Yes tonsils normal Neck Neck: Yes no lymphadenopathy and Yes supple Thyroid: Thyroid normal Resp Auscultation: clear to auscultation bilaterally, no rales and no wheezes Cardio Rate: regular rate Rhythm: regular rhythm Heart sounds: no murmurs GI Palpation (GI): Soft to palpation and nontender Auscultation: normal bowel sounds General: Yes no CVA tenderness Back/Spine/Pelvis Back: no CVA tenderness Skin Rashes: no rashes Extrem General: Yes no clubbing, cyanosis or edema Results Reviewed Results Reviewed: Laboratory Tests 10/02/23 11:50 Sodium 143 Potassium 3.2 L Creatinine 0.98 Estimated GFR > 60 Fasting Glucose 93 Calcium 8.7 AST 19 ALT 27 Triglycerides 134 Cholesterol 226 H LDL Cholesterol, Calc 166 H HDL Cholesterol 34 L Assessment and Plan Assessment & Plan (1) Pure hypercholesterolemia: Comment: no meds--borderline Code(s): E78.00 - Pure hypercholesterolemia, unspecified Plan: Results of his labs done a few weeks ago reviewed and discussed with patient - advised that his LDL and total cholesterol levels remain high but have improved from last year Reinforced low cholesterol diet Advised again that he may need to consider starting back on cholesterol-lowering medications if he cannot get his numbers down to goal Patient prefers to continue working on his diet (modification) for now and hold off on Rx Will have him recheck his fasting lipids and labs in 4 months for follow up (2) Elevated blood pressure reading: Code(s): R03.0 - Elevated blood-pressure reading, without diagnosis of hypertension Plan: Reinforced low sodium diet - his BP appears much better today Patient is reminded to monitor his blood pressure regularly (3) Allergic rhinitis: Code(s): J30.9 - Allergic rhinitis, unspecified Qualifiers: Allergic rhinitis trigger: unspecified Allergic rhinitis seasonality: unspecified Qualified Code(s): J30.9 - Allergic rhinitis, unspecified Plan: Continue Fluticasone 50 mcg nasal spray QD PRN (4) Overweight (BMI 25.0-29.9): Code(s): E66.3 - Overweight Plan: Reinforced diet/exercise as tolerated/lose weight Plan Follow up in 4 months Orders: Orders Complete Blood Count Auto Diff 4 Months D64.9 - Anemia, unspecified UA CC w/rflx Micro + Cult 4 Months R30.0 - Dysuria Comprehensive [place]. Panel Fast 4 Months E78.00 - Pure hypercholesterolemia, unspecified Lipid Panel 4 Months E78.00 - Pure hypercholesterolemia, unspecified Vitamin D 25-OH Total 4 Months E55.9 - Vitamin D deficiency, unspecified Coding Level of Care Code Est Pt Level 4 (94023) Diagnoses Pure hypercholesterolemia E78.00 Elevated blood pressure reading R03.0 Allergic rhinitis, unspecified seasonality, unspecified trigger J30.9 Allergic rhinitis trigger: unspecified Allergic rhinitis seasonality: unspecified Overweight (BMI 25.0-29.9) E66.3
[2023-11-10 11:09] VITALS: BP 120/66; PULSE 86; O2SAT 96; BMI 27.7
== END 2023-11-10 11:40 | disposition home or self-care (01) ==
PROVIDERS: PCP Internal Medicine; Visit Provider Internal Medicine
DX: E78.00 Pure hypercholesterolemia, unspecified (principal); R03.0 Elevated blood-pressure reading, without diagnosis of hypertension; J30.9 Allergic rhinitis, unspecified; E66.3 Overweight
CPT/HCPCS: 99214

== ENCOUNTER 2024-03-08 10:23 | Outpatient (REF) | payer OTHER, SELFPAY ==
[2024-03-08 10:32] LABS: MANUAL DIFF FLAG NO
[2024-03-08 11:09] LABS: Appearance Urine Clear; Color Urine Yellow; Glucose Urine UA Negative (Negative); Leukocyte Esterase Urine Negative (Negative); Nitrite Urine Negative (Negative); PH 6.5 (5.0-9.0); Urine Blood Negative (Negative); Urine Ketones Negative (Negative); Urine Protein Negative (Neg-Trace)
[2024-03-08 11:30] LABS: Basophils Percent Auto 0.6 % (0-2); Eosinophils Absolute Auto 0.2 X10*3/uL (0.0-0.4); Eosinophils Percent Auto 3.1 % (0-4); Hematocrit 41.1 % (42.0-52.0); Hemoglobin 14.2 g/dl (14.0-18.0); Imm Gran Abs Auto 0.02 X10*3/uL (0.00-0.03); Imm Gran Pct Auto 0.4 % (0.0-0.4); Lymphocytes Absolute Auto 1.7 X10*3/uL (1.2-4.9); Lymphocytes Percent Auto 33.6 % (20-40); Mean Corpuscular HGB Conc 34.5 g/dl (31.0-36.0); Mean Corpuscular Hemoglobin 30.6 pg (27.0-33.0); Mean Corpuscular Volume 88.6 fL (80.0-98.0); Monocytes Absolute Auto 0.4 X10*3/uL (0.1-1.2); Monocytes Percent Auto 7.7 % (2-11); Neutrophils Absolute Auto 2.8 x10*3/uL (2.0-8.3); Neutrophils Percent Auto 54.6 % (45-73); Platelet Count 206 X10*3/uL (160-400); Red Blood Count 4.64 X10*6/uL (4.60-5.80); White Blood Count 5.2 X10*3/uL (4.8-10.8)
[2024-03-08 12:01] LABS: Alanine Aminotransferase 19 U/L (0-40); Alkaline Phosphatase 88 U/L (39-117); Anion Gap 11 (12-20); Aspartate Amino Transferase 15 U/L (5-37); Bilirubin Total 0.7 mg/dL (0.0-1.0); Blood Urea Nitrogen 15 mg/dL (9-16); Calcium 8.6 mg/dL (8.4-10.2); Carbon Dioxide 28 mmol/L (22-29); Chloride 107 mmol/L (96-108); Cholesterol 216 mg/dL (<200); Estimated Glomerular Filt Rate > 60; Glucose Fasting 91 mg/dL (60-99); HDL Cholesterol 39 mg/dL (>40); LDL Cholesterol Calculated 158 mg/dL (<100); Potassium 3.6 mmol/L (3.3-5.1); Sodium 142 mmol/L (135-145); Total Protein 6.7 g/dL (6.5-8.0); Triglycerides 99 mg/dL (<150)
[2024-03-08 12:17] LABS: Vitamin D 25-OH Total 33.4 ng/mL (>30)
== END 2024-03-08 10:24 | disposition home or self-care (01) ==
LOC: HO.LAB 10:23
PROVIDERS: PCP Internal Medicine; Visit Provider Internal Medicine
DX: D64.9 Anemia, unspecified (principal); E78.00 Pure hypercholesterolemia, unspecified; R30.0 Dysuria; E55.9 Vitamin D deficiency, unspecified
CPT/HCPCS: 36415; 80053; 80061; 81003; 82306; 85025

== ENCOUNTER 2024-09-25 15:15 | Outpatient (AMB) | payer OTHER, SELFPAY ==
[2024-09-25 15:16] VITALS: BP 130/86; PULSE 73; O2SAT 96; BMI 28.1
--- NOTE | 2024-09-25 15:16 | MHC.PC.OV ---
Vital Signs 09/25/24 15:16 Height 5 ft 5.5 in Weight 171 lb 4 oz BMI 28.1 BP 130/86 Blood Pressure Location Lt brachial Position Sitting Pulse 73 Pulse Source Pulse Oximeter Pulse Oximetry (%) 96 Oxygen Delivery Method Room Air Intake Visit Reasons: 4 month f/u 06/21 Clinical Pharmacologist Required: No Accompanied by: Self / Same As Patient Allergies No Known Allergies Allergy (Verified 11/10/23 11:24) Medication List - Last Reconciled 09/29/24 by Zaheer Cummings MD aspirin 81 mg PO DAILY fluticasone propionate 50 mcg/actuation 1 spray intranasal DAILY Tobacco use date assessed: 11/10/23 Dental Screening Dental Screen Date: 09/25/24 Did you have a dental visit in the last 12 months?: Yes Did you have a dental problem in the last 6 months where you did not have access to dental care?: No Was dental information given to patient?: Patient has dentist HPI 4 month f/u 06/21 HPI Details Patient comes in today for his follow-up visit States that he feels okay He denies any headaches or dizziness Denies any chest pains, no shortness of breath No nausea/vomiting, no abdominal pain No change in bowel habits noted He would like to know how he did on his labs done back in March 2024 [facility] Medical History (Updated 09/25/24 @ 16:11 by Zaheer Cummings MD) GERD (gastroesophageal reflux disease) Allergic rhinitis Overweight (BMI 25.0-29.9) Pure hypercholesterolemia Surgical History Status post excision of lipoma (~09/26/18) Hx of colonoscopy Family History Father Diabetes Mother High blood pressure High cholesterol Brother No problems noted. Sister No problems noted. Social History Housing: House Alcohol intake: current Alcohol intake frequency: holidays/special occasions only Alcohol type: beer, wine, hard liquor and other Patient Tobacco Use Status: Never used Tobacco e-Cigarette/Vaping Use: Never Used Second Hand Smoke Exposure: Yes service: No Current occupational status: employed Cognitive needs: No Hearing needs: No Vision needs: Yes (reading glasses) Questionnaire PHQ-9 Over the last 2 weeks, how often have you been bothered by any of the following problems? 1. Little interest or pleasure in doing things: not at all 2. Feeling down, depressed, or hopeless: not at all 3. Trouble falling or staying asleep, or sleeping too much: not at all 4. Feeling tired or having little energy: not at all 5. Poor appetite or overeating: not at all 6. Feeling bad about yourself - or that you are a failure or have let yourself or your family down: not at all 7. Trouble concentrating on things, such as reading the newspaper or watching television: not at all 8. Moving or speaking so slowly that other people could have noticed. Or the opposite - being so fidgety or restless that you have been moving around a lot more than usual: not at all 9. Thoughts that you would be better off or of hurting yourself in some way: not at all Total score: 0 Depression Screening Interpretation: Negative Depression Screening Done: Yes 92834 - PHQ-9 Billing: Yes Source: Developed by Drs. Med Moise, Sherin Krause, Monty Campos and colleagues, with an educational joslyn from [employer]. Thrive Questionnaire Date Thrive assessed: 09/25/24 I am a: Patient What is your living situation today?: I have a steady place to live Within the past 12 months, did the food you bought not last and you didn't have the money to get more?: Never true Within the past 12 months, did you worry whether your food would run out before you got money to buy more?: Never true Do you have trouble paying for medicines?: No Do you have trouble getting transportation to medical appointments?: No Do you have trouble paying your heating and electricity bill?: No Do you have trouble taking care of your child, family member or friend?: No Do you have trouble with day-to-day activities such as bathing, preparing meals, shopping, managing finances, etc.?: No Are you currently unemployed and looking for a job?: No Are you interested in more education?: No Please select the resources that you would like help with: None Currently or been in a relationship where the following occur: No concerns reported THRIVE Score: 0 AUDIT C Alcohol Use Questionnaire (AUDIT-C) 1. How often do you have a drink containing alcohol?: Never Total Score: 0 Score Reviewed/Action Taken: Yes KARUNA-7 AMB Questionnaire KARUNA-7 Date KARUNA - 7 assessed: 09/25/24 Feeling nervous, anxious, or on edge: 0 = Not at all Not being able to stop or control worryin = Not at all Worrying too much about different things: 0 = Not at all Trouble relaxin = Not at all Being so restless that it is hard to sit still: 0 = Not at all Becoming easily annoyed or irritable: 0 = Not at all Feeling afraid as if something awful might happen: 0 = Not at all Total KARUNA-7 score (0-4 normal; 5-9 mild; 10-14 moderate; 15-21 severe): 0 Source: Developed by Drs. Med Moise, Sherin Krause, Monty Campos and colleagues, with an educational joslyn from [employer]. Review of Systems Const Denies chills, Denies fatigue, Denies fever(s) and Denies headache(s) ENT Denies dysphagia, Denies dizziness, Denies otalgia, Denies headache(s), Denies neck pain, Denies odynophagia and Denies sore throat Card Denies chest pain, Denies irregular heart rhythm, Denies palpitations and Denies dyspnea Resp Denies chest congestion, Denies cough and Denies dyspnea GI Denies abdominal pain, Denies constipation, Denies dysphagia, Denies heartburn, Denies diarrhea, Denies nausea, Denies odynophagia and Denies vomiting Denies difficulty urinating, Denies dysuria and Denies urinary frequency Musc Denies back pain, Denies arthralgias and Denies neck pain Skin/Breast Denies rash Neuro Denies dizziness, Denies headache(s) and Denies paresthesias Endo Denies fatigue and Denies palpitations Physical exam (Primary Care) Vital Signs: Last Vital Signs Pulse 73 09/25/24 15:16 BP 130/86 09/25/24 15:16 Pulse Ox 96 09/25/24 15:16 Oxygen Delivery Method Room Air 09/25/24 15:16 BMI result Body Mass Index 28.1 Tobacco/Smoking Status: Tobacco use Status Tobacco use date assessed 11/10/23 09/25/24 15:18 Patient Tobacco Use Status Never used Tobacco 09/25/24 15:18 e-Cigarette/Vaping Use Never Used 09/25/24 15:18 PHQ-9: PHQ-9 Score PHQ-9: Total score 0 09/25/24 16:02 Depression Screening Interpretation: Negative Thrive Assessment: Date of Thrive Assessment Date Thrive assessed 09/25/24 09/25/24 15:24 Currently or been in a relationship where the following occur: No concerns reported Const General: no acute distress and alert HENMT Ears: TM's normal bilaterally and EAC's normal Throat: Yes posterior oropharynx normal and Yes tonsils normal (no TP congestion) Neck Neck: Yes supple and No lymphadenopathy Thyroid: Thyroid normal Resp Auscultation: clear to auscultation bilaterally, no rales and no wheezes Cardio Rate: regular rate Rhythm: regular rhythm Heart sounds: no murmurs GI Palpation (GI): Soft to palpation and nontender Auscultation: normal bowel sounds General: Yes no CVA tenderness Back/Spine/Pelvis Back: no CVA tenderness Thoracic/Lumbar Spine: No lumbar spinal tenderness Skin Other: (+) large lipoma on the middle of the back; (+) 2 smaller lipomas at the right abdominal wall Rashes: no rashes Extrem General: Yes no clubbing, cyanosis or edema Results Reviewed Results Reviewed: Laboratory Tests 03/08/24 03/08/24 10:27 10:32 WBC 5.2 Hgb 14.2 Hct 41.1 L Plt Count 206 Sodium 142 Potassium 3.6 Creatinine 1.10 Estimated GFR > 60 Fasting Glucose 91 Calcium 8.6 AST 15 ALT 19 Triglycerides 99 LDL Cholesterol, Calc 158 H HDL Cholesterol 39 L 25-OH Vitamin D Total 33.4 Ur Specific [place] 1.020 Urine Protein Negative Urine Glucose (UA) Negative Urine Blood Negative Urine Nitrite Negative Ur Leukocyte Esterase Negative Coding Level of Care Code Est Pt Level 4 (52187) Diagnoses Lipoma of back D17.1 Pure hypercholesterolemia E78.00 Elevated blood pressure reading R03.0 Allergic rhinitis, unspecified seasonality, unspecified trigger J30.9 Allergic rhinitis trigger: unspecified Allergic rhinitis seasonality: unspecified Overweight (BMI 25.0-29.9) E66.3 Additional Codes PHQ-9 - 57512 - PHQ-9 Billing: Yes ([id number]) Assessment & Plan Assessment & Plan (1) Lipoma of back: Code(s): D17.1 - Benign lipomatous neoplasm of skin and subcutaneous tissue of trunk Category: Medical Plan: Will refer him to surgery for consideration for excision of his lipomas (2) Pure hypercholesterolemia: Comment: no meds--borderline Code(s): E78.00 - Pure hypercholesterolemia, unspecified Category: Medical Plan: Results of his labs done back in March 2024 reviewed and discussed with patient Have advised patient that his cholesterol levels remain elevated on his labs doneback in March 2024 but his levels have improved slightly from previous Reinforced low cholesterol diet Will have patient recheck his labs and fasting lipids in 6 months for follow-up (3) Elevated blood pressure reading: Code(s): R03.0 - Elevated blood-pressure reading, without diagnosis of hypertension Category: Medical Plan: Reinforced low sodium diet - his BP appears much better today Patient is reminded to monitor his blood pressure regularly (4) Allergic rhinitis: Code(s): J30.9 - Allergic rhinitis, unspecified Category: Medical Qualifiers: Allergic rhinitis trigger: unspecified Allergic rhinitis seasonality: unspecified Qualified Code(s): J30.9 - Allergic rhinitis, unspecified Plan: Continue Fluticasone 50 mcg nasal spray QD PRN (5) Overweight (BMI 25.0-29.9): Code(s): E66.3 - Overweight Category: Medical Plan: Reinforced diet/exercise as tolerated/lose weight Plan To return in 6 months for his next annual physical examination Orders: Orders Lipid Panel 6 Months E78.00 - Pure hypercholesterolemia, unspecified, Z00.00 - Encounter for general adult medical examination without abnormal findings Vitamin D 25-OH Total 6 Months E55.9 - Vitamin D deficiency, unspecified, Z00.00 - Encounter for general adult medical examination without abnormal findings Hemoglobin A1c 6 Months E11.9 - Type 2 diabetes mellitus without complications, Z00.00 - Encounter for general adult medical examination without abnormal findings Complete Blood Count Auto Diff 6 Months D64.9 - Anemia, unspecified, Z00.00 - Encounter for general adult medical examination without abnormal findings Comprehensive [place]. Panel Fast 6 Months E78.00 - Pure hypercholesterolemia, unspecified, Z00.00 - Encounter for general adult medical examination without abnormal findings TSH reflex Free T4 6 Months E78.00 - Pure hypercholesterolemia, unspecified, Z00.00 - Encounter for general adult medical examination without abnormal findings UA CC w/rflx Micro + Cult 6 Months R30.0 - Dysuria, Z00.00 - Encounter for general adult medical examination without abnormal findings Prostate Specific Antigen 6 Months N40.0 - Benign prostatic hyperplasia without lower urinary tract symptoms, Z00.00 - Encounter for general adult medical examination without abnormal findings Referrals General Surgery Referral D17.1 - Benign lipomatous neoplasm of skin and subcutaneous tissue of trunk
== END 2024-09-25 16:15 | disposition home or self-care (01) ==
PROVIDERS: PCP Internal Medicine; Visit Provider Internal Medicine
DX: D17.1 Benign lipomatous neoplasm of skin and subcutaneous tissue of trunk (principal); E78.00 Pure hypercholesterolemia, unspecified; R03.0 Elevated blood-pressure reading, without diagnosis of hypertension; J30.9 Allergic rhinitis, unspecified; E66.3 Overweight

== ENCOUNTER → 2024-09-25 15:15 | Outpatient (BNVA) | payer OTHER, SELFPAY | PROVIDERS: PCP Internal Medicine; Visit Provider Internal Medicine | DX: D17.1 Benign lipomatous neoplasm of skin and subcutaneous tissue of trunk (principal); E78.00 Pure hypercholesterolemia, unspecified; R03.0 Elevated blood-pressure reading, without diagnosis of hypertension; J30.9 Allergic rhinitis, unspecified; E66.3 Overweight | CPT/HCPCS: 96127; 99212 ==

== ENCOUNTER 2024-10-03 14:01 | Outpatient (AMB) | payer OTHER, SELFPAY ==
--- NOTE | 2024-10-03 14:03 | MHC.OFFVIS ---
Vital Signs 10/03/24 14:08 Height 5 ft 5.5 in Weight 175 lb BMI 28.7 Intake Visit Reasons: Lipoma on back Intake Note: This patient presents for lipoma on back. Pt c/o; lipoma on back, discomfort. Logistics Manager Required: No Accompanied by: Self / Same As Patient Allergies No Known Allergies Allergy (Verified 10/03/24 14:09) Medication List - Last Reconciled 10/03/24 by Justyn Mart MD aspirin 81 mg PO DAILY fluticasone propionate 50 mcg/actuation 1 spray intranasal DAILY HPI HPI Lipoma on back: Details: 54-year-old male referred for a lipoma on the back. He says he has had this lipoma on the back for a couple of years but this has been increasing in size. He admits to a little bit of discomfort. He also has 2 other lipomas on the right flank which he says are smaller but have increased in size as well He does have a history of multiple lipomas removed in the past. He says he is healthy otherwise and is very active. [facility] Medical History (Updated 09/25/24 @ 16:11 by Zaheer Cummings MD) GERD (gastroesophageal reflux disease) Allergic rhinitis Overweight (BMI 25.0-29.9) Pure hypercholesterolemia Surgical History Status post excision of lipoma (~09/26/18) Hx of colonoscopy Family History Father Diabetes Mother High blood pressure High cholesterol Brother No problems noted. Sister No problems noted. Social History Housing: House Alcohol intake: current Alcohol intake frequency: holidays/special occasions only Alcohol type: beer, wine, hard liquor and other Patient Tobacco Use Status: Never used Tobacco e-Cigarette/Vaping Use: Never Used Second Hand Smoke Exposure: Yes service: No Current occupational status: employed Cognitive needs: No Hearing needs: No Vision needs: Yes (reading glasses) Review of Systems Const Denies chills and Denies fever(s) Card Denies chest pain, Denies dyspnea and Denies dyspnea on exertion Resp Denies cough, Denies dyspnea and Denies dyspnea on exertion GI Denies hematochezia and Denies change in bowel habits Denies hematuria and Denies difficulty urinating Musc Denies back pain and Denies limited range of motion Neuro Denies focal weakness and Denies convulsions Psych Denies depression and Denies mood swings Physical Exam Const General: comfortable and no acute distress Orientation/consciousness: patient oriented x3 Neck Neck: Yes no lymphadenopathy Resp Auscultation: clear to auscultation bilaterally Cardio Rhythm: regular rhythm GI Palpation (GI): Soft to palpation, nontender and no guarding Back/Spine/Pelvis Other: Large lipoma on the mid back, about 6 cm in widest dimension Two lipomas on the right flank area about 2 cm each Neuro General: patient oriented x3 Assessment & Plan Assessment & Plan (1) Lipoma of back: Code(s): D17.1 - Benign lipomatous neoplasm of skin and subcutaneous tissue of trunk Category: Medical Plan: He has a large lipoma on the mid back, about 6 cm in widest dimension. He has 2 small lipomas in the right flank, about 2 cm each. He wants all these lipomas excised.. I explained the technique of excision under anesthesia because of the large size of the back lipoma. I reviewed the risks including but not limited to bleeding, infections, poor healing, as well as the benefits and alternatives. He says he understands and wants to proceed. Coding Level of Care Code New Pt Level 3 (75402) Diagnoses Lipoma of back D17.1
[2024-10-03 14:08] VITALS: BMI 28.7
== END 2024-10-03 14:13 | disposition home or self-care (01) ==
PROVIDERS: PCP Internal Medicine; Visit Provider Surgery
DX: D17.1 Benign lipomatous neoplasm of skin and subcutaneous tissue of trunk (principal)
CPT/HCPCS: 99203

== ENCOUNTER → 2024-10-03 14:01 | Outpatient (BNVA) | payer OTHER, SELFPAY | PROVIDERS: PCP Internal Medicine; Visit Provider Surgery | DX: D17.1 Benign lipomatous neoplasm of skin and subcutaneous tissue of trunk (principal) | CPT/HCPCS: 99202 ==

== ENCOUNTER 2024-12-03 06:24 | Day surgery (SDC) | payer OTHER, SELFPAY ==
[2024-11-08 13:48] VITALS: BMI 28.7
[2024-12-03 06:31] VITALS: BP 168/97; PULSE 70; RESP 20; TEMP 36.9; O2SAT 99; BMI 28.2
[2024-12-03] MEDS: Lactated Ringers 1,000 ML 50 ML IVCONT (06:51)
--- NOTE | 2024-12-03 08:09 | MHC.SHP ---
Pre-Procedural Eval Section A - 24 Hr Update-Section A only Date of Service: 12/03/24 Section B - Complete if H&P > 30 days Chief Complaint: Benign lipomatous neoplasm of skin Details of Present Illness: Has a lipoma on the back and 2 lipomas in the right flank Relevant Social History: None Present Medications: see Short Stay Collaborative assessment Medical History: No relevant PMH History of Previous Operations: No relevant previous surgery Allergies: Allergies Allergy/AdvReac Type Severity Reaction Status Date / Time No Known Allergies Allergy Verified 10/03/24 14:09 Review of Systems Sugical H&P ROS: Negative: Constitution, Cardiovascular and Respiratory Exam Surgical H&P Exam: Normal: Heart and Normal: Abdomen Exam Comment: Large Lipoma on the back, 2 smaller lipomas in the right flank Plan Diagnosis/Plan: Unchanged I have reviewed the history and physical and performed a pertinent physical examination on my patient. No changes have occurred unless specified. Time Spent With Patient Time: Total time managing care of this patient today ____ minutes.
--- NOTE | 2024-12-03 08:26 | HO.ANESPROP2 ---
HPI - Anesthesia Eval Consult details Narrative: 54 M for lipoma excision PMFSH Active Problems Active Problems: All Active Problems Lipoma of abdominal wall (Acute) Dyspepsia (Acute) Tubular adenoma of colon (Acute) Annual physical exam (Acute) Elevated blood pressure reading (Acute) Colon cancer screening (Acute) Pre-op examination (Acute) Lipoma of back (Acute) Facial skin lesion (Acute) Allergic rhinitis (Acute) Overweight (BMI 25.0-29.9) (Acute) Pure hypercholesterolemia (Acute) Past Medical History Medical History GERD (gastroesophageal reflux disease) Allergic rhinitis Overweight (BMI 25.0-29.9) Pure hypercholesterolemia Family History Family History Father Diabetes Mother High blood pressure High cholesterol Brother No problems noted. Sister No problems noted. Family history of problems with anesthesia: No Surgical History Surgical History Status post excision of lipoma (~09/26/18) Hx of colonoscopy History of Problems with Anesthesia: No Social History Social History Housing: House Alcohol intake: current Alcohol intake frequency: holidays/special occasions only Alcohol type: beer, wine, hard liquor and other Patient Tobacco Use Status: Never used Tobacco e-Cigarette/Vaping Use: Never Used Second Hand Smoke Exposure: Yes Have you been hit, kicked, punched, or otherwise hurt by someone within the past year? If so, by whom?: No Are you DNR?: No Advance Directives: No Advance Directives Information Provided: Yes service: No Current occupational status: employed Cognitive needs: No Hearing needs: No Vision needs: Yes (reading glasses) Meds Allergies Allergy/AdvReac Type Severity Reaction Status Date / Time No Known Allergies Allergy Verified 10/03/24 14:09 Active Medications: Current Medications Lactated Ringer's (Lr) 1,000 mls @ 50 mls/hr IVCONT .Q20H ASHELY Last Admin: 12/03/24 06:51 Dose: 50 mls/hr Home Medications ?Medication ?Instructions ?Recorded ?Confirmed ?Last Taken ?Type aspirin 81 mg capsule 81 mg PO DAILY 02/16/23 12/03/24 10/05/24 History fluticasone propionate 50 1 spray intranasal DAILY 02/28/23 12/03/24 10/05/24 History mcg/actuation nasal spray,suspension Exam Height,Weight and Vital Signs: Height 5 ft 5.5 in Weight 172 lb 6.424 oz Last Vital Signs Temp 98.5 F 12/03/24 06:31 Pulse 70 12/03/24 06:31 Resp 20 12/03/24 06:31 BP 168/97 H 12/03/24 06:31 Pulse Ox 99 12/03/24 06:31 O2 Del Method Room Air 12/03/24 06:31 Airway Mallampati Class: II TM Dist: >3cm Neck ROM: Full Loose/Missing/Broken Teeth: Yes Assessment and Plan Assessment Anesthesia Assessment: Anesthesia Plan Discussed and Chart Reviewed Final Anesthetic Review Family History of Problems with Anesthesia: No History of Problems with Anesthesia: No NPO: Yes ASA Class: II Final Preanesthetic Review: No Changes in Pt Med Stat, Meds/Allgs Chart Reviewed, Consent Obtained/Reviewed and Anes Risks/Benef Reviewed Patient Risk: Low Procedure Risk: Low Anesthetic Plan Anesthetic Plan: GA and MAC: Disposition: Standard PACU
--- NOTE | 2024-12-03 09:29 | P.OP_ITS ---
Operative Note Operative Note Date of Service: 12/03/24 Narrative: Preop diagnosis: Lipoma, back; lipomas x2, right flank Postop diagnosis: 1. Intramuscular lipoma, 5 cm on the back 2. Lipomas x2, 2.5 cm each, on the right flank Procedure: Excision of intramuscular lipoma from the back; excision of lipomas x2 from the right flank Surgeon: Justyn Mart MD orthodontist assistant: HARSHAD Aguilar The patient is a 54-year-old male with a large lipoma on the back as well as to lipomas in the right flank. He understood the technique of excision as well as the risks, benefits, and alternatives He was brought to the operating room. He was placed in left lateral decubitus position under monitored anesthesia care. A surgical time-out was done. The areas of the lipomas were prepped and draped in the usual sterile fashion. The patient received cefazolin 2 g IV preoperatively I infiltrated the planned line of incision with lidocaine 1% on the back. The incision was made with a blade 15. This carried down with electrocautery through the full-thickness of the skin subcutaneous fat. I had to go through the thick subcutaneous fat and by palpation, I noticed that the lipoma was actually under the fascia. I incised the fascia with electrocautery. I proceeded to continued to gently dissect until was able to see the lipoma. This was intramuscular. I dissect this around the muscle bluntly with a finger as well as with electrocautery. We continued to do circumferential dissection until I was able to deliver this. This was about a 5 cm lipoma, lobulated. I irrigated. I cauterized oozing areas of the muscle. I closed the fascia with the Polysorb 3-0 stitch. I then apposed the thick subcutaneous fat with Polysorb 3-0 simple interrupted sutures. Skin closure was achieved with nylon 3-0 simple interrupted sutures I then proceeded to infiltrate the skin overlying the 2 lipomas in the right flank with lidocaine 1%. I made the incision using blade 15 and carried this down with electrocautery. Immediately, the lipoma was noted in the subcutaneous layer. We dissected this sharply with Metzenbaum scissors as well as with dissection used the finger. The lipoma was delivered with this was 2.5 cm diameter. Another incision was made on the skin on the right flank adjacent to the 1st incision. Again, this carried down with electrocautery. A lipoma was noted and subcutaneous layer. This was delivered in the same fashion as the right flank lipoma. This measured about 2.5 cm as well All skin incisions were then closed with nylon 3-0 simple interrupted sutures All incisions were infiltrated with Marcaine 0.5% for postop analgesia Dressings were applied The procedure was completed The patient tolerated the procedure well. There were no immediate complications. Initial and final counts of sponges and instruments were correct. Estimated blood loss was about 25 cc The patient was extubated without difficulty and transferred to the recovery room with stable vital signs
[2024-12-03 09:40] VITALS: BP 141/100; PULSE 81; RESP 17; TEMP 36.1; O2SAT 99
[2024-12-03 09:55] VITALS: BP 148/103; PULSE 102; RESP 17; O2SAT 99
[2024-12-03 10:10] VITALS: BP 151/100; PULSE 102; RESP 17; TEMP 36.3; O2SAT 99
== END 2024-12-03 10:48 | disposition home or self-care (01) ==
PROVIDERS: PCP Internal Medicine; Visit Provider Surgery
PROC: (CPT 21933; principal; 2024-12-03 08:40)
DX: D17.1 Benign lipomatous neoplasm of skin and subcutaneous tissue of trunk (principal); K21.9 Gastro-esophageal reflux disease without esophagitis; E78.00 Pure hypercholesterolemia, unspecified; J30.9 Allergic rhinitis, unspecified; E66.3 Overweight; Z68.28 Body mass index [BMI] 28.0-28.9, adult; Z79.82 Long term (current) use of aspirin; Z79.51 Long term (current) use of inhaled steroids; Z98.890 Other specified postprocedural states
CPT/HCPCS: 21933; 21930 ×2; 88304; J0690; J2003; J2704; J2795

== ENCOUNTER → 2024-12-03 06:24 | Outpatient (BNV) | payer OTHER, SELFPAY | PROVIDERS: PCP Internal Medicine; Visit Provider Surgery | DX: D17.1 Benign lipomatous neoplasm of skin and subcutaneous tissue of trunk (principal) | CPT/HCPCS: 21930; 21933 ==

== ENCOUNTER 2024-12-16 09:36 | Outpatient (AMB) | payer OTHER, SELFPAY ==
--- NOTE | 2024-12-16 09:41 | A.OFFVIS_ITS ---
Vital Signs 12/16/24 09:51 Height 5 ft 5 in Weight 167 lb 4 oz BMI 27.8 BP 130/82 Blood Pressure Location Lt brachial Position Sitting Pulse 89 Intake Visit Reasons: S/P exc. Lg. lipoma of mid back, Rt flank x2 Intake Note: Patient is seen in office for post op visit post excision of intramuscular lipoma from the back; excision of lipomas x2 from the right flank. 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 Lg. lipoma of mid back, Rt flank x2: Details: He underwent excision of multiple lipomas from his torso last 12/03/2024. He tolerated procedure well and currently denies significant complaints. [facility] Medical History GERD (gastroesophageal reflux disease) Allergic rhinitis Overweight (BMI 25.0-29.9) Pure hypercholesterolemia Surgical History Status post excision of lipoma (12/03/24) Status post excision of lipoma (~09/26/18) Hx of colonoscopy Family History Father Diabetes Mother High blood pressure High cholesterol Brother No problems noted. Sister No problems noted. Social History Housing: House Alcohol intake: current Alcohol intake frequency: holidays/special occasions only Alcohol type: beer, wine, hard liquor and other Patient Tobacco Use Status: Never used Tobacco e-Cigarette/Vaping Use: Never Used Second Hand Smoke Exposure: Yes service: No Current occupational status: employed Cognitive needs: No Hearing needs: No Vision needs: Yes (reading glasses) Review of Systems Const Denies chills and Denies fever(s) Physical Exam Vital Signs: Last Vital Signs Pulse 89 12/16/24 09:51 BP 130/82 12/16/24 09:51 BMI result Body Mass Index 27.8 Const General: comfortable and no acute distress Back/Spine/Pelvis Other: All incisions on the flank and the back are well healed, not infected, sutures intact Assessment & Plan Assessment & Plan (1) Lipoma of back: Code(s): D17.1 - Benign lipomatous neoplasm of skin and subcutaneous tissue of trunk Category: Medical Plan: Status post excision. All excision sites are well healed. His sutures were removed His path report shows lipomas. He can follow up on a p.r.n. basis. Coding Level of Care Code Global (31981) Diagnoses Lipoma of back D17.1
[2024-12-16 09:51] VITALS: BP 130/82; PULSE 89; BMI 27.8
== END 2024-12-16 10:13 | disposition home or self-care (01) ==
LOC: HO.HGS 09:37
PROVIDERS: PCP Internal Medicine; Visit Provider Surgery
DX: D17.1 Benign lipomatous neoplasm of skin and subcutaneous tissue of trunk (principal)
CPT/HCPCS: 99024

== ENCOUNTER → 2024-12-16 09:36 | Outpatient (BNVA) | payer OTHER, SELFPAY | PROVIDERS: PCP Internal Medicine; Visit Provider Surgery | DX: D17.1 Benign lipomatous neoplasm of skin and subcutaneous tissue of trunk (principal) | CPT/HCPCS: 99212 ==

== ENCOUNTER 2025-02-10 10:48 | Outpatient (AMB) | payer OTHER, SELFPAY ==
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
[2025-02-10 10:52] VITALS: BP 136/88; PULSE 77; TEMP 36.2; O2SAT 98; BMI 28.1
== END 2025-02-10 11:57 | disposition home or self-care (01) ==
LOC: HO.HMCH 10:49
PROVIDERS: PCP Internal Medicine; Visit Provider Internal Medicine
DX: E78.00 Pure hypercholesterolemia, unspecified (principal); L23.9 Allergic contact dermatitis, unspecified cause

== ENCOUNTER → 2025-02-10 10:48 | Outpatient (BNVA) | payer OTHER, SELFPAY | PROVIDERS: PCP Internal Medicine; Visit Provider Internal Medicine | DX: L23.9 Allergic contact dermatitis, unspecified cause (principal); E78.00 Pure hypercholesterolemia, unspecified; Z13.30 Encounter for screening examination for mental health and behavioral disorders, unspecified | CPT/HCPCS: 99212 ==

== ENCOUNTER 2025-03-06 11:38 | Outpatient (REF) | payer OTHER, SELFPAY ==
[2025-03-06 11:58] LABS: MANUAL DIFF FLAG NO
[2025-03-06 12:31] LABS: Hematocrit 41.8 % (42.0-52.0); Hemoglobin 14.6 g/dl (14.0-18.0); Imm Gran Abs Auto 0.01 X10*3/uL (0.00-0.03); Imm Gran Pct Auto 0.2 % (0.0-0.4); Lymphocytes Absolute Auto 1.6 X10*3/uL (1.2-4.9); Mean Corpuscular HGB Conc 34.9 g/dl (31.0-36.0); Mean Corpuscular Hemoglobin 30.6 pg (27.0-33.0); Mean Corpuscular Volume 87.6 fL (80.0-98.0); NRBC Abs Auto 0.000 X10*3/uL (0.0-0.012); NRBC Pct Auto 0.0 /100WBC (0.0-0.2); Platelet Count 197 X10*3/uL (160-400); Red Blood Count 4.77 X10*6/uL (4.60-5.80); White Blood Count 5.1 X10*3/uL (4.8-10.8)
[2025-03-06 12:36] LABS: Hemoglobin A1C 125.7623 umol/L; Total Hemoglobin (HGBA1C) 3805.5440 umol/L
[2025-03-06 12:43] LABS: Appearance Urine Clear; Glucose Urine UA Negative (Negative); PH 8.5 (5.0-9.0); Specific Gravity - Urine 1.015 (1.005-1.025)
[2025-03-06 13:17] LABS: Alanine Aminotransferase 27 U/L (0-40); Albumin Level 4.1 g/dL (3.5-5.0); Alkaline Phosphatase 97 U/L (39-117); Anion Gap 9 (12-20); Aspartate Amino Transferase 19 U/L (5-37); Blood Urea Nitrogen 10 mg/dL (9-16); Calcium 8.4 mg/dL (8.4-10.2); Carbon Dioxide 30 mmol/L (22-29); Chloride 107 mmol/L (96-108); Cholesterol 236 mg/dL (<200); Estimated Glomerular Filt Rate > 60; HDL Cholesterol 34 mg/dL (>40); Potassium 3.6 mmol/L (3.3-5.1); Sodium 142 mmol/L (135-145); Total Protein 6.7 g/dL (6.5-8.0); Triglycerides 124 mg/dL (<150)
[2025-03-06 13:33] LABS: Prostate Specific Antigen 0.86 ng/mL (<0.05-4.0)
== END 2025-03-06 11:39 | disposition home or self-care (01) ==
LOC: HO.LAB 11:38
PROVIDERS: PCP Internal Medicine; Visit Provider Internal Medicine
DX: Z00.00 Encounter for general adult medical examination without abnormal findings (principal); E78.00 Pure hypercholesterolemia, unspecified; E11.9 Type 2 diabetes mellitus without complications; D64.9 Anemia, unspecified; N40.0 Benign prostatic hyperplasia without lower urinary tract symptoms; E55.9 Vitamin D deficiency, unspecified; R30.0 Dysuria
CPT/HCPCS: 36415; 80053; 80061; 81003; 82306; 83036; 84153; 84443; 85025

== ENCOUNTER 2025-03-26 15:38 | Outpatient (AMB) | payer OTHER, SELFPAY ==
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
[2025-03-26 15:42] VITALS: BP 140/78; PULSE 78; TEMP 36.3; O2SAT 97; BMI 28.5
== END 2025-03-26 16:16 | disposition home or self-care (01) ==
LOC: HO.HMCH 15:38
PROVIDERS: PCP Internal Medicine; Visit Provider Internal Medicine
DX: Z00.00 Encounter for general adult medical examination without abnormal findings (principal); E78.00 Pure hypercholesterolemia, unspecified; R03.0 Elevated blood-pressure reading, without diagnosis of hypertension; J30.9 Allergic rhinitis, unspecified; E66.3 Overweight

== ENCOUNTER → 2025-03-26 15:38 | Outpatient (BNVA) | payer OTHER, SELFPAY | PROVIDERS: PCP Internal Medicine; Visit Provider Internal Medicine | DX: Z00.00 Encounter for general adult medical examination without abnormal findings (principal); E78.00 Pure hypercholesterolemia, unspecified; R03.0 Elevated blood-pressure reading, without diagnosis of hypertension; J30.9 Allergic rhinitis, unspecified; E66.3 Overweight; Z68.28 Body mass index [BMI] 28.0-28.9, adult; Z13.31 Encounter for screening for depression | CPT/HCPCS: 96127; 99396 ==